=== PATIENT | female | born 1940 | race Caucasian/White ===

== ENCOUNTER → 2017-02-19 | Outpatient (CLI) | payer MEDICARE, BC ==
[~2017-02-19] MED LIST: ACE PO; ACETAMINOPHEN325 MG PO; ALB/IPRATROPIUM/1 EA INH; ASPIRIN81 M1 PO; ATARAX PO; CARVEDILOL6.25 MG PO; CIPRO PO; COMBIVENT INH14.7 GM INH; COREG6.25 MG PO; CRESTOR PO; DEMADEX PO; DOXYCYCLINE PO; FUROSEMIDE40 MG PO; GABAPENTIN300 M2 PO; GABAPENTIN300 MG PO; HYDROXYZINE HCL25 M1 PO; K-DUR20 ME1 PO; KCL PO; KLOR-CON PO; LASIX PO; LEVAQUIN750 MG PO; LEVOTHYROXINE150 MCG PO; LEVOXYL150 MC1 PO; MUCINEX PO; NASONEX17 GM; NEURONTIN PO; NEXIUM PO; NEXIUM20 MG PO; PENTAZOCINE PO; PHENERGAN PO; POTASSIUM CHLO10 ME1 PO; POTASSIUM CHLO10 ME2 PO; POTASSIUM CHLO10 MEQ PO; PREDNISONE PO; PROAIR HFA8.5 GM IH; PYRIDIUM PO; REGLAN10 MG; SPIRIVA18 MCG INH; SYNTHROID PO; TALWIN NX TABLE1 TAB PO; TALWIN NX50 MG TAB PO; TIZANIDINE HCL4 M1 PO; VAGIFEM25 MCG PO; ZANAFLEX PO; ZANAFLEX4 M1 PO; ZAROXYLYN PO; ZESTRIL10 MG PO; ZOCOR PO
--- NOTE | ~2017-02-19 | CR63 ---
[facility] A Service of [facility] RADIOLOGY TEXT RESULTS PATIENT: RENÉ COLLINS LOCATION: SRA : 42 UNIT #: [id number] AGE: [address]: KLAUDIA RASCON MD SEX: F ORDER DR: [id number] [address] [address] [id number] O MR#: [id number] Acc #: [id number] NAME: RENÉ COLLINS : 1940 SEX: F STUDY DATE/TIME: 02/19/2017 9:38 UNIT: [facility] ROOM: STUDY DESCRIPTION: CR Chest 2 View Attending Physician: Stoney Rascon M.D. Referring Physician: Stoney Rascon M.D. Ordering Physician: Stoney Rascon M.D. Primary Care Physician: Stoney Rascon M.D. MEDICAL IMAGING REPORT This report is preliminary unless electronic signature is present. EXAM 2 views chest 02/19/2017 HISTORY Fatigue, hypoxia. COMPARISON 02/05/2013 FINDINGS PA and lateral radiographs of the chest are presented. There has been interval placement of a left side cardiac pacemaker with leads extending through the left subclavian vein and terminating at right atrium and ventricular levels. Stable lhdm-mj-[id number] cardiac enlargement. Lungs moderately well-inflated. There is no clear indication of acute, infectious, or inflammatory disease. No pleural effusion or pneumothorax. No suspicious nodule. There are some relatively coarse peripheral interstitial densities similar to prior examination and favored to reflect chronic change. Thoracolumbar spinal fixation hardware unchanged. Multilevel compression deformities in the spine unchanged. Evidence of prior cervical spine anterior fusion. Visualized hardware unchanged. Posterior cervical spine fusion hardware also grossly unchanged on these incomplete views. Multiple surgical clips in the upper abdomen. No free air. Visualized bowel gas pattern normal. Dictated by... Mc Zamarripa M.D. THIS IS AN ELECTRONICALLY VERIFIED REPORT Mc Zamarripa M.D. at 02/19/2017 5:16 PM [facility] A Service of [facility] RADIOLOGY TEXT RESULTS PATIENT: RENÉ COLLINS LOCATION: [facility] : 42 UNIT #: [id number] AGE: [address]: KLAUDIA RASCON MD SEX: F ORDER DR: Patrick TD: 02/19/2017 12:36 JOB #: [id number] MEDICAL IMAGING REPORT Page 1 of 1
== END | disposition home or self-care (01) ==
LOC: SRAD 09:25
DX: R53.83 Other fatigue (principal); R09.02 Hypoxemia
CPT/HCPCS: 71020

== ENCOUNTER → 2017-02-21 | Outpatient (CLI) | payer MEDICARE, BC | END | disposition home or self-care (01) | LOC: CLAB 10:10 | DX: R09.02 Hypoxemia (principal); M54.9 Dorsalgia, unspecified | CPT/HCPCS: 36415; 85379 ==